=== PATIENT | male | born 1980 | race Two or more races ===

== ENCOUNTER 2022-02-17 13:53 | Emergency (ER) | payer SELFPAY ==
[~2022-02-17] VITALS: Ht 188 cm; Wt 84.0 kg
[2022-02-17 16:25] VITALS: BP 145/72
[2022-02-17] MEDS ORDERED: IBUP800T26 PO ×2 (16:44→17:13)
[2022-02-17] MEDS ORDERED: HYDR-4902 PO (17:13)
[2022-02-17] MEDS ORDERED: HYDROcodone-ACET 5/325MG TAB PO ONE (17:15)
== END 2022-02-17 17:21 | disposition home or self-care (01) ==
LOC: ER 14:00
DX: S52.502A Unspecified fracture of the lower end of left radius, initial encounter for closed fracture (principal); Z79.1 Long term (current) use of non-steroidal anti-inflammatories (NSAID); V00.311A Fall from snowboard, initial encounter; Y93.23 Activity, snow (alpine) (downhill) skiing, snowboarding, sledding, tobogganing and snow tubing; Y92.89 Other specified places as the place of occurrence of the external cause; Y99.8 Other external cause status
CPT/HCPCS: 29125; 73110